=== PATIENT | male | born 1995 | race Hispanic/Latino ===

== ENCOUNTER 2016-04-18 11:59 | Emergency (ER) | payer SELFPAY ==
[~2016-04-18] VITALS: Ht 170.2 cm; Wt 61.8 kg
[2016-04-18 12:04] VITALS: BP 101/63; PULSE 104; RESP 20; O2SAT 100
[2016-04-18 12:52] LABS: BASOPHILS % (AUTO) 0.4 % (0-3); EOSINOPHILS % (AUTO) 1.7 % (0-5); MONOCYTES % (AUTO) 5.6 % (4-12); Mean Corpuscular Hemoglobin 30.4 pg (27.0-35.0); Mean Corpuscular Volume 90.7 fL (81-100); NEUTROPHILS % (AUTO) 70.4 % (40-74); Platelet Count 321 bil/L (150-400)
[2016-04-18 13:13] LABS: Magnesium 2.2 mg/dL (1.6-2.6)
--- NOTE | 2016-04-18 14:14 | ED.REPORT ---
HPI-Abd Pain M Under 41 Date of Service Apr 18, 2016 ED Provider: Angie Hernandez History of Present Illness: all over body pain for 3 days. no vomiting, nausea, or fever, feel hot inside of his skin. no others sick. no primary care. state left arm pain. denies rash. 09/22 took tylenol for the pain today around 11 no help Nursing Notes Stated Complaint: ABDOMINAL PAIN/FEVER Chief Complaint: Male Abdominal Pain Nursing Notes Reviewed: Yes Allergies: Coded Allergies: No Known Allergies (Unverified , 04/18/16) General Time Seen by MD: 14:13 Chief Complaint Other (all over pain) Hx Obtained From: Patient Sudden in Onset?: No Onset Occurred: 3 days ago Symptom Duration: Since onset Past Medical History Past Medical History Denies: Asthma, Diabetes mellitus Past Surgical History denies Smoking History Never Smoker Social History Alcohol Use: "Social" Drug Use: Denies drug use Occupation lives with brother and sister in law no work or school 04/18/2016. sister in law with him in room Ambulatory Status Independent Review of Systems Basic Review of Systems Eyes: Vision NL, No discharge Skin: No bruising, No rash, No itch Psychiatric: Normal thought content Physical Exam Initial Vital Signs Vital Signs (First) Date Time Temp Pulse Resp B/P Pulse Ox O2 Delivery O2 Flow Rate FiO2 04/18/16 12:04 36.4 104 20 101/63 100 Room Air Initial VS: Reviewed, Vital signs normal Head / Eyes: Atraumatic, Normocephalic, PERRL ENT: Mucous membranes moist, Conjunctiva normal, No scleral icterus Neck: Supple, Non-tender, Full range of motion Lymphatic: No lymphadenopathy Extremities: Vascular intact, Neuro intact, No swelling, No tenderness Skin: Warm, Dry, No cyanosis Neurologic: Alert, Oriented, Nonfocal Psychiatric: Mood/affect normal, Behavior normal, Normal thought content General/Constitutional: Awake, Alert, No acute distress, Well appearing, Well developed Respiratory / Chest: Atraumatic, Breath sounds NL, Breath sounds = bilat, No respiratory distress, No rales, No rhonchi Cardiovascular: Heart rate NL, Regular rhythm, Heart sounds NL, No gallop Abdomen: Atraumatic, Soft, Non-tender, McBurney's non-tender Back: Atraumatic, Inspection NL, Full range of motion Interpretation & Diagnostics Lab Results Interpretation Result Diagram: 04/18/16 1225 04/18/16 1225 Test 04/18/16 12:25 04/18/16 14:21 White Blood Count 7.2th/mm3 (3.8-10.1) Red Blood Count 4.96mil/mm3 (4.40-5.80) Hemoglobin 15.1g/dL (13.8-17.2) Hematocrit 45.0% (41.0-50.0) Mean Corpuscular Volume 90.7fL (81-100) Mean Corpuscular Hemoglobin 30.4pg (27.0-35.0) Mean Corpuscular Hemoglobin Concent 33.6% (32.0-37.0) Red Cell Distribution Width 13.4% (12.3-15.4) Platelet Count 321bil/L (150-400) Neutrophils (%) (Auto) 70.4% (40-74) Lymphocytes (%) (Auto) 21.8% (14-46) Monocytes (%) (Auto) 5.6% (4-12) Eosinophils (%) (Auto) 1.7% (0-5) Basophils (%) (Auto) 0.4% (0-3) Sodium Level 136mEq/L (134-144) Potassium Level 3.9mEq/L (3.5-5.2) Chloride Level 96mEq/L (97-108) Carbon Dioxide Level 27mmol/L (18-29) Blood Urea Nitrogen 20mg/dL (6-20) Creatinine 0.84mg/dL (0.76-1.27) Estimat Glomerular Filtration Rate 124mL/min (>59) Glucose Level 68mg/dL (60-99) Calcium Level 8.8mg/dL (8.5-10.1) Magnesium Level 2.2mg/dL (1.6-2.6) Total Bilirubin 1.3mg/dL (0.0-1.2) Aspartate Amino Transf (AST/SGOT) 24U/L (0-50) Alanine Aminotransferase (ALT/SGPT) 21U/L (0-44) Alkaline Phosphatase 81U/L (25-150) Total Protein 6.9g/dL (6.4-8.4) Albumin 4.2g/dL (3.4-5.0) Lipase 22U/L (13-60) Lab Results Interpretation: urine is clear of infection, u tox positive for meth and amphetamine Re-Eval/Medical Decision Med Decision/Clinical Course 21 year old male presents for evualation for all over body pain. Labs are unremarkable and exam is unremarkable. Urine tox is positive for meth and amphetamines. Discussed this finding with patient, denies drug use. Exam does not indicate appendicitis, cellulitis, or mesenteric adenitis. Patient Discharge & Departure Primary Impression: Myalgia Disposition: Home Patient Instructions: Muscle Strain (ED) Additional Instructions: Your labs are normal. Your urine looks good. The urine drug screen does show positive for meth and for amphetamines. The urine is being tested for STD's. If any come back positive we will let you know. Your flu swab is negative. Do not do drugs! You can use ibuprofen 600 mg up to 3 times a day tomorrow if needed. Los resultados del laboratorio son normales. Senior orina se ve leeann. El analisis para drogas muestra positivo para meth y amfetamines. Se esta' examinando la orina para enfermedades transmitidas por actividades sexuales. Si alguna sale positivo le dejaremos saber. Senior muestra para influenza salio' negativo. No usa drogas! Ud puede usar ibuprofen 600mg hasta 3 veces al andrew maniana si se necesita. Referrals: [facility] EDSupervising Provider for APC: Derek Aldana MD copies to: [facility] Angie Hernandez Apr 18, 2016 14:14
[2016-04-18] MEDS ORDERED: Ketorolac 30 mg/mL 2 mL Inj IM ONE (14:30)
[2016-04-18 16:46] VITALS: BP 101/63; PULSE 104; RESP 20; O2SAT 100
== END 2016-04-18 15:22 | disposition home or self-care (01) ==
LOC: SED 11:59
DX: M79.1 Myalgia (principal)
CPT/HCPCS: 36415; 80053; 83690; 83735; 85025; 87491; 87591; 87804; 96372; 99284; J1885